=== PATIENT | male | born 1980 ===

== ENCOUNTER 2020-04-08 16:52 | Observation (INO) ==
[2020-04-08] MEDS ORDERED: Naloxone 0.4 MG/ML INJ IVP PRN (18:31)
[2020-04-08] MEDS ORDERED: Ondansetron 4 MG/2 ML VIAL IVP PRN (18:31)
[2020-04-08] MEDS ORDERED: Ringers Solution, Lactated 1,000 ML ONE (18:45)
[2020-04-08] MEDS: Ringers Solution, Lactated 1,000 ML IVC SCH (20:19)
[2020-04-09 01:27] LABS: Basophils % 0.4 %; Eosinophils # 0.2 K/mcL (0.0-0.6); Hematocrit 42.5 % (37.5-50.1); Hemoglobin 14.5 g/dL (12.9-16.9); Immature Granulocytes % 0.4 % (0-4); Lymphocytes # 1.9 K/mcL (0.6-4.6); Lymphocytes % 25.7 %; Mean Corpuscular HGB Conc 34.1 g/dL (31.6-35.5); Mean Corpuscular Volume 90.8 fL (83.0-100.0); Mean Platelet Volume 12.4 fL (9.4-12.4); Monocytes % 12.9 %; Neutrophils # 4.2 K/mcL (1.6-8.9); Platelet Count 131 K/mcL (140-400); Red Blood Count 4.68 M/mcL (4.19-5.50); Red Cell Distribution Width 12.5 % (11.5-14.5); Segmented Neutrophils % 57.6 %; White Blood Count 7.3 K/mcL (4.3-11.1)
[2020-04-09 01:32] LABS: Prothrombin Time 11.8 Seconds (9.4-12.1)
[2020-04-09 01:47] LABS: Calcium 9.3 mg/dL (8.6-10.3); Potassium 4.1 mEq/L (3.5-5.1)
[2020-04-09] MEDS: Ringers Solution, Lactated 1,000 ML IVC SCH (05:53)
[2020-04-09] MEDS ORDERED: cefTRIAXone 1,000 MG in Water for inj. (sterile) 10 ML IVP SCH (09:00)
[2020-04-09] MEDS ORDERED: Isovue-300 50ML VIAL ONE (18:43)
[2020-04-09] MEDS ORDERED: *HR* FentaNYL (PF) 100 MCG/2 ML VIAL IVP PRN (18:53)
[2020-04-09] MEDS ORDERED: Acetaminophen IV 1,000 MG/100 ML INFUS..BTL IVPB ONE (18:54)
[2020-04-09] MEDS ORDERED: *HR* Propofol 200 MG/20 ML VIAL IVP ONE (18:54)
[2020-04-09] MEDS ORDERED: Ondansetron 4 MG/2 ML VIAL IVP ONE (18:54)
[2020-04-09] MEDS ORDERED: Dexamethasone 4 MG/ML VIAL ONE (19:08)
[2020-04-09] MEDS ORDERED: Ondansetron 4 MG/2 ML VIAL ONE (19:08)
[2020-04-09] MEDS ORDERED: Lidocaine -MPF 2% 2 ML VIAL ONE (19:08)
[2020-04-09] MEDS ORDERED: Ondansetron 4 MG/2 ML VIAL IVP PRN (21:07)
[2020-04-09] MEDS ORDERED: Naloxone 0.4 MG/ML INJ IVP PRN (21:07)
[2020-04-10 04:42] LABS: BUN/Creatinine Ratio 18 (6-26); Blood Urea Nitrogen 23 mg/dL (6-20); Calcium 9.8 mg/dL (8.6-10.3); Carbon Dioxide 25 mEq/L (23-29); Chloride 104 mEq/L (98-107); Glucose 139 mg/dL (70-105); Osmolality,Calculated 292 (280-300); Sodium 138 mEq/L (136-145); eGFR For African Americans > 60 (> 60); eGFR For Non-African Americans > 60 (> 60)
[2020-04-10] MEDS ORDERED: cefTRIAXone 1,000 MG in Water for inj. (sterile) 10 ML IVP SCH (09:00)
[2020-04-10 10:17] VITALS: BP 146/91
[2020-04-14 09:04] LABS: Calculi Mass 30 mg
== END 2020-04-10 14:33 | disposition home or self-care (01) ==
LOC: 3ANU → SUATTDRO 18:12
PROVIDERS: ADMIT Internal Medicine; ATTEND Internal Medicine